=== PATIENT | female | born 1985 | race Caucasian/White ===

== ENCOUNTER → 2019-02-11 15:08 | Outpatient (CLI) | payer BC, SELFPAY ==
[2019-02-11 15:50] LABS: Hemoglobin A1C% w Est Avg Glu 4.8 % (4.0-6.0)
[2019-02-11 16:10] LABS: Cholesterol 108 mg/dL (140-199); HDL Cholesterol 40 mg/dL (40-60); LDL Cholesterol Calculated 57 mg/dL (<100); Triglycerides 57 mg/dL (35-150)
== END ==
PROVIDERS: Family Provider Family Medicine; PCP Family Medicine; Visit Provider Registered Nurse Women's Health Care, Ambulatory
DX: Z13.220 Encounter for screening for lipoid disorders (principal); Z13.1 Encounter for screening for diabetes mellitus
CPT/HCPCS: 36415; 80061; 83036

== ENCOUNTER → 2019-07-30 10:44 | Outpatient (CLI) | payer BC, SELFPAY ==
--- NOTE | 2019-07-30 | DI.US.S_ITS ---
PROCEDURE: US OB >= 14 WEEKS FETUS INDICATIONS: 20 WEEK ANATOMY SURVEY OUTSIDE/PRIOR DATING DATA: Last menstrual period (LMP): 03/19/19. LMP-based estimated date of delivery (ALBA): 12/24/19. First dating scan (date and location): 07/30/19. Estimated date of delivery (ALBA) from first dating scan: 12/20/19. TECHNIQUE: Real-time scanning was performed of the fetus, with image documentation and biometric measurements. COMPARISON: None. FINDINGS: General: A single living intrauterine gestation is present. Presentation: Vertex. Placenta: Placental position is anterior, without previa. Amniotic fluid index: 18.8 cm, normal range is 5-24 cm. heart rate: 157 beats per minute. Maternal cervical canal: 5.7 cm long. biometrics: Biparietal diameter: 4.6 cm corresponding to 19 weeks 6 days Head circumference: 16.5 cm corresponding to 19 weeks one day Abdominal circumference: 13.8 cm corresponding to 19 weeks 2 days Femur length: 2.9 cm and 19 weeks zero days Estimated gestational age from initial scan: not applicable. Composite gestational age from present scan: 19 weeks 4 days Estimated weight and percentile: 276 and g 54th percentile Measurement variability for biometric dating: +/- 7 days from 14 weeks to 15 weeks 6 days gestation, +/- 10 days from 16 weeks to 21 weeks 6 days gestation, +/- 2 weeks from 22 weeks to 27 weeks 6 days gestation, +/- 3 weeks for 28 weeks gestation or later. weight reference: 4500 g or EFW >90/95% is considered macrosomia or large for gestational age. EFW <10% is small for gestational age. EFW 5% or less is considered intra-uterine growth restriction. Anatomic survey: Neuro: Ventricles are non-dilated at less than 10 mm. Cisterna magna is normal at 3-11 mm. Cerebellum is normal in size and morphology. Nuchal skin fold: Normal at less than 6 mm between 14-21 weeks gestational age. Face: Nose and lips, facial profile are normal. Spine: No evidence for spina bifida. Heart: 4-chambered heart is present, with normal ventricular outflow tracts. Diaphragm: Diaphragm is intact. Stomach: Left-sided stomach is present. Kidneys: No hydronephrosis. Normal is less than 5 mm in 2nd trimester, less than 7 mm in 3rd trimester. Cord: 3-vessel cord has orthotopic insertion. Bladder: Normal in size. Extremities: All 4 extremities identified. IMPRESSION: 1. Single live intrauterine as above. 2. Anatomy is within normal limits. Dictated by: Nathalie Tilley M.D. on 07/30/2019 at 15:16 Approved by: Nathalie Tilley M.D. on 07/30/2019 at 15:18
== END ==
PROVIDERS: Family Provider Family Medicine; PCP Family Medicine; Referring Provider Nurse Practitioner Obstetrics & Gynecology; Visit Provider Nurse Practitioner Obstetrics & Gynecology
DX: Z36.89 Encounter for other specified antenatal screening (principal); Z3A.19 19 weeks gestation of pregnancy
CPT/HCPCS: 76811

== ENCOUNTER → 2019-09-24 09:02 | Outpatient (CLI) | payer BC, SELFPAY ==
[2019-09-24 10:28] LABS: GTT (PREG) 1 Hour PP 50gm Dose 101 mg/dL (76-139)
[2019-09-24 13:32] LABS: Hematocrit 35.9 % (36-46); Hemoglobin 12.6 g/dL (12.0-16.0); Mean Corpuscular HGB Conc 35.2 % (30-36); Mean Corpuscular Hemoglobin 32.3 PG (26-34); Mean Corpuscular Volume 91.8 fL (80-100); Platelet Count 138 X10^3/uL (150-400); Red Blood Cell Count 3.91 X10^6/uL (4.0-5.2); Red Cell Distribution Width 13.2 % (11.6-14.8); White Blood Cell Count 8.1 X10^3/uL (4.5-11.0)
== END ==
PROVIDERS: Family Provider Family Medicine; PCP Family Medicine; Referring Provider Nurse Practitioner Obstetrics & Gynecology; Visit Provider Nurse Practitioner Obstetrics & Gynecology
DX: Z34.90 Encounter for supervision of normal pregnancy, unspecified, unspecified trimester (principal); Z13.1 Encounter for screening for diabetes mellitus; Z3A.26 26 weeks gestation of pregnancy
CPT/HCPCS: 36415; 82950; 85027

== ENCOUNTER → 2019-11-26 12:19 | Outpatient (ROUT) | payer BC, SELFPAY | PROVIDERS: Family Provider Family Medicine; PCP Family Medicine; Visit Provider Nurse Practitioner Obstetrics & Gynecology | DX: Z34.90 Encounter for supervision of normal pregnancy, unspecified, unspecified trimester (principal); Z36.85 Encounter for antenatal screening for Streptococcus B; Z3A.36 36 weeks gestation of pregnancy | CPT/HCPCS: 87081 ==

== ENCOUNTER → 2019-12-13 14:49 | Outpatient (CLI) | payer BC, SELFPAY ==
[2019-12-14 16:34] LABS: COVID19 Sendout Not Detected (Not Detect)
== END ==
PROVIDERS: Family Provider Family Medicine; PCP Family Medicine; Visit Provider Physician Assistant
DX: Z11.59 Encounter for screening for other viral diseases (principal)
CPT/HCPCS: 87635

== ENCOUNTER 2019-12-16 10:29 | Inpatient (IN) | payer BC, SELFPAY ==
[2019-12-16 10:52] VITALS: BP 114/60
[2019-12-16 11:21] LABS: Add Manual Diff / Slide Review NO; Basophils Absolute Auto 100 /uL (0-100); Eosinophils Absolute Auto 100 /uL (0-450); Eosinophils Percent Auto 0.8 % (2-4); Hematocrit 36.1 % (36-46); Hemoglobin 12.6 g/dL (12.0-16.0); Lymphocytes Absolute Auto 1000 /uL (1100-4500); Lymphocytes Percent Auto 12.6 % (25-40); Mean Corpuscular HGB Conc 34.8 % (30-36); Mean Corpuscular Hemoglobin 31.5 PG (26-34); Mean Corpuscular Volume 90.3 fL (80-100); Monocytes Absolute Auto 400 /uL (0-900); Neutrophils Absolute Auto 6700 /uL (1500-7000); Neutrophils Percent Auto 80.6 % (50-75); Platelet Count 137 X10^3/uL (150-400); Red Cell Distribution Width 13.2 % (11.6-14.8); White Blood Cell Count 8.3 X10^3/uL (4.5-11.0)
[2019-12-16] MEDS: LACTATED RINGERS 1,000 ML 100 ML IV ×3 (12:00→16:39)
--- NOTE | 2019-12-16 12:27 | PM.PREOP ---
Pre-operative Note COVID-19 COVID-19 status: Negative Result date/Date tested (Pos, Neg/Pending): 12/13/19 Interval Note History & Physical reviewed/Exam performed by Physician: Yes Changes to H&P: No
--- NOTE | 2019-12-16 13:15 | SUR.OPER ---
Placenta and cord blood sent with OB RN Mack Chacon
[2019-12-16] MEDS: KETOROLAC 30 MG/ML VIAL IV ×2 (13:30→19:20)
[2019-12-16 13:56] VITALS: BP 101/53; PULSE 68; O2SAT 97
--- NOTE | 2019-12-16 13:57 | P.OP_ITS ---
Operative Date/Time/Diagnoses Date of procedure: 12/16/19 Time of procedure: 13:57 Pre-op diagnosis: Thirty-nine weeks gestation Previous section x2 Keloid scar Post-op diagnosis: same Procedure & Clinicians Procedure: Procedures Operation Date: 12/16/19 12:00 Actual Procedures Side Surgeon p Repeat Section Cindy Hamlin MD Indications: 39 weeks gestation Previous section x2 Keloid scar Surgeon: Cindy Hamlin Anesthesia Type: Spinal (With Duramorph) Operative Notes Findings: Live male Normal uterus tubes and ovaries Dense adhesions of the fascia 1 cm keloid scar of the Pfannenstiel incision Closure Type: primary Specimen(s): other (Placenta to path, cord bloods) Applied: catheter (To continuous drainage) Estimated blood loss (mL): 500 Blood products transfused: none Procedure in detail: The patient was taken to the operating room where she was placed in the seated position. Spinal anesthesia with Duramorph was administered. The patient was then placed in the dorsal supine position with a leftward tilt. She was prepped and draped in the usual sterile fashion. A timeout was performed. After spinal analgesia was found to be adequate, the previous Pfannenstiel incision was excised in an elliptical fashion. the incision was then carried down to the fascia. The fascia was nicked in the midline, and the incision extended bilaterally with the Parsons scissors. Dense fascial scar was encountered and this was taken down with a 10. Blade and the Parsons scissors. The superior aspect of the fascial incision was grasped with a Edison clamps, elevated, and the underlying rectus muscles dissected off sharply and bluntly. Attention was then turned to the inferior aspect of this incision which in a similar fashion was grasped with a Josh clamps, elevated, and the underlying rectus muscles dissected off sharply and bluntly. The rectus muscles were in the midline. The peritoneum was identified, grasped between 2 hemostats, and entered sharply with the Metzenbaum scissors. This incision was extended superiorly and inferiorly with good visualization of the bladder. The bladder blade was inserted. The vesicouterine peritoneum was identified, grasped with the pickup, and entered sharply with the Metzenbaum scissors. This incision was extended bilaterally, and the bladder flap was created digitally. The bladder blade was reinserted. The lower uterine segment was incised in a transverse fashion with the scalpel. Upon entering the amniotic sac there was moderate amount of clear amniotic fluid. The infant's head was delivered with vacuum assistance. The nose and mouth were suctioned with bulb suction. The remainder of the body delivered without difficulty. The baby was wrapped in a warm blanket for 1 minutes to allow the cord to stop pulsing. The cord was double clamped and cut. The was handed off to waiting RN and RT. The placenta was delivered manually. The uterus was cleared of all clots and debris. the cervix was opened with a ring forceps which was then handed off the sterile field. The uterine incision was repaired with #1 chromic in a running interlocking fashion, and a second layer the same suture was used for an imbricating layer. Hemostasis was achieved. The tubes and ovaries were examined and were found to be normal. The gutters were cleared of all clots and debris. The bladder flap was reapproximated using 2-0 Vicryl in a running fashion. The parietal peritoneum was closed using 2-0 Vicryl in a running fashion. the muscle was brought together with 2 0 Vicryl. The fascia was re approximated using 0 Vicryl in a running fashion. The subcutaneous layer was copiously irrigated with warm normal saline. 5 simple interrupted sutures of 3- 0 Vicryl were placed to reapproximate the subcutaneous layer. The skin was closed with 4-0 Biosyn in a subcuticular fashion. Steri-Strips were placed. An Aquacell dressing was placed. The uterus was expressed of a small amount of old blood. Sponge, lap, and instrument counts were correct x-2. The patient tolerated the procedure well, and was taken to PACU in stable condition. Complications: none Post-operative Condition: stable Disposition: PACU Plan for aftercare: To the center after recovery
[2019-12-16 14:01] VITALS: BP 107/66; PULSE 70; RESP 28; O2SAT 97
[2019-12-16 14:06] VITALS: BP 96/59; PULSE 69; RESP 9; O2SAT 97
[2019-12-16 14:11] VITALS: BP 95/65; PULSE 69; RESP 14; O2SAT 98
--- NOTE | 2019-12-16 14:15 | SUR.PHASEI ---
Report called called to Apoorva
[2019-12-16 14:21] VITALS: TEMP 35.8
--- NOTE | 2019-12-16 14:22 | SUR.PHASEI ---
patient transferred to the center by Maria Isabel. Condition stable.
[2019-12-16] MEDS: ONDANSETRON 4 MG/2 ML INJ IV (17:30)
[2019-12-17] MEDS: KETOROLAC 30 MG/ML VIAL IV ×2 (01:46→07:36)
[2019-12-17 06:10] LABS: Hematocrit 33.1 % (36-46); Hemoglobin 11.3 g/dL (12.0-16.0)
[2019-12-17] MEDS: DOCUSATE 250 MG CAPSULE PO (07:37)
[2019-12-17] MEDS: PRENATAL VIT,CALC/IRON/FOLIC 1 TABLET 1 TAB PO (07:37)
--- NOTE | 2019-12-17 12:58 | PM.OBDS.1 ---
Discharge Providers Provider Date of admission: 12/16/19 10:29 Discharge Date: 12/17/19 Primary care physician: Natty Wilkerson DO Consults: 12/16/19 16:27 Consult to Reference Assistant Routine Comment: Discharge provider: Cindy Hamlin MD Summary Hospital Course Date Patient Seen: 12/17/19 Time Patient Seen: 10:15 Procedures: Repeat low-transverse section Spinal anesthesia Hospital Course: Patient is a 34-year-old 3 para 3 who presented on December 17, 2019 for a scheduled repeat low-transverse section. She underwent this procedure as well as a revision of her keloid scar without complication. On postop day # 1 her Mott catheter was removed and she was able to void without difficulty. She is ambulating independently. Her pain is well controlled. She is tolerating a diet. Peripartum Data Infant Delivery Method: Section (Repeat) Laceration Description: None Episiotomy description: None Procedures: Repeat low-transverse section Spinal anesthesia complications: none [place] 1: Gender: Male Disposition of : home Status at Discharge Cognitive/behavioral status at discharge: oriented Functional status at discharge: independent ambulation Overall status at discharge: patient is progressing back to baseline Time Spent with Patient Time attestation: Total time spent providing and/or coordinating discharge services: Objective Labs Result Diagrams: 12/17/19 06:00 Labs: Laboratory Results - last 24 hr 12/17/19 06:00 Hgb 11.3 L Hct 33.1 L Exam Vital Signs (past 8 hours): Oxygen Delivery Method Room Air Narrative Exam Narrative: Generally: Patient is sitting in chair, nursing infant, no acute distress Lungs: Clear to auscultation bilaterally Cardiovascular: Regular rate and rhythm Fundus: Firm at U -1 Incision: There was old blood under the Aquacel dressing. The Aquacel dressing was removed. The Steri-Strips that had some old blood were removed. The incision was cleaned. Clean Steri-Strips and an Aquacel dressing were placed. Extremities: Negative Homans, no edema Discharge Plan Discharge Plan Patient Disposition: Home Discharge comment: Call with fever, chills, redness or drainage around incision or bleeding vaginally more than a pad in an hour Ibuprofen 600mg every 6 hours Stool softner Percocet or Tylenol every 6 hours Discharge orders & Medications Prescriptions: New oxycodone-acetaminophen [Percocet] 5-325 mg tablet 1 tab PO Q4-6H PRN (Reason: pain) Qty: 20 RF: 0 docusate sodium [Colace] 100 mg capsule 100 mg PO DAILY Qty: 20 RF: 0 Continued cetirizine 10 MG tablet 10 mg PO PRN PRN (Reason: allergies) Qty: 0 RF: 0 Follow up/Referrals: Cindy Hamlin MD [Physician] - 1 Week (1 week Aquacel removal ) Gricel Arboleda CNM [Advanced Deputy Coroner Investigator] - 6 Weeks Diet/Activity/Treatments Diet: Regular Activity: No heavy lifting Skin/Wound/Dressing Care Report to your healthcare provider any signs of infection, such as:: chills, fever, increased pain, unusual drainage and unusual redness Dressing: Do not remove Visit Report/Discharge Packet Instructions: DI for , DI for Prescription Opioid Use Discharge Data Primary Care Provider: Natty Wilkerson
[2019-12-17] MEDS: ACETAMINOPHEN 325 MG TABLET 650 MG PO (13:15)
[2019-12-17] MEDS: IBUPROFEN 600 MG TABLET PO (13:15)
[2019-12-17 14:23] VITALS: BP 108/66; PULSE 77; RESP 16; TEMP 36.7
== END 2019-12-17 17:10 | disposition home or self-care (01) | DRG 788 ==
PROVIDERS: Admitting Provider Obstetrics & Gynecology; Family Provider Family Medicine; PCP Family Medicine; Referring Provider Obstetrics & Gynecology; Visit Provider Obstetrics & Gynecology
PROC: 10D00Z1 Extraction of Products of Conception, Low, Open Approach (ICD-10-PCS; CPT 59514; principal; 2019-12-16 12:00)
DX: O34.211 Maternal care for low transverse scar from previous cesarean delivery (principal); Z3A.39 39 weeks gestation of pregnancy; Z37.0 Single live birth
CPT/HCPCS: 36415; 59050; 59514; 85014; 85018; 85025; 86850; 86900; 86901; J1885; J2274; J2405; J2590; J3010

== ENCOUNTER 2019-12-18 15:06 | Observation (INO) | payer BC, SELFPAY ==
--- NOTE | 2019-12-18 15:10 | PC.NURSE ---
Pt presents to L&D at the encouragement of Gricel Arboleda CNM to come in to be evaluated for a spinal headache post c/s from last . Pt c/o intense headache. Pt reports it's worse when she bends her neck. Headache not improved with Ibuprofen, Tylenol, or Oxycodone. Dr. Chisholm (the anesthesiologist acquisition associate) was notified that the pt was coming and is notified now that the pt is here. She is in an OR case and will come evaluate the pt once the surgery is over. Pt informed and agrees with poc.
--- NOTE | 2019-12-18 15:15 | PM.OBTRLD ---
Visit Information Visit Information Date of evaluation: 12/18/19 Primary OB Provider: Gricel Arboleda On-call OB Provider: Sharifa Jasso Comments/Additional reasons for admission: 34YO @ 2 days PP s/p repeat 12/16/19@ 1200. Has had a headache since yesterday morning despite round the clock ibuprofen and Tylenol. Headache extends from forehead to base of skull, described as throbbing. Headache is worse with sitting and standing, unnoticeable when lying down. Vital Signs Vital Signs: BP 116/67, HR 80bpm, T97.0F Temporal PFSH Medical History Seasonal allergies (Chronic) Surgical History Anesthesia (Resolved) S/P surgery on nasal septum (Resolved 2005) Status post delivery (Resolved 2014) Status post delivery (Resolved 2015) Family History Grandmother Hypertension Hyperlipidemia Pacemaker Mother Age: 60 Acquired hypothyroidism Grandmother Hypertension Grandfather No problems noted. Grandfather Prostate cancer Social History Smoking Status: Never smoker Review of Systems Review of Systems ROS: Yes All systems reviewed with the patient and are negative except as otherwise documented Exam Vital Signs (past 8 hours): see above Eyes General: appearance normal, both eyes and all related structures Pupils: PERRL Resp Effort & Inspection: normal respiratory effort Auscultation: clear to auscultation bilaterally Cardio Rate: regular rate Rhythm: regular rhythm Heart Sounds: S1 normal and S2 normal Other: Fundus firm @ u-1, lochia light. Aquacel in place, clean, dry and intact. Neuro General: patient alert, patient awake, patient oriented x3 and moves all extremities Cognition: normal cognition Speech: speech normal Gait: normal gait Diagnosis, Plan/Disposition Final Diagnosis (1) S/P section: Status: Acute (2) Spinal headache complicating labor and delivery, condition: Status: Acute Problem details: Counseled on spinal headache and possibility of epidural blood patch for treatment. Consulted / OC Anesthesia provider who will come evaluate the patient as soon as she leaves the OR.
--- NOTE | 2019-12-18 16:10 | PC.NURSE ---
Dr. Chisholm at bedside assessing pt and discussing options and blood patch procedure with pt including risks and benefits. pt agrees with blood patch procedure and would like to continue with that plan.
--- NOTE | 2019-12-18 16:33 | PC.NURSE ---
Addendum entered by Patsy Bond R.N. 12/18/19 17:11: Blood patch procedure performed by Dr. Chisholm from 1627 to 1633. 20cc blood drawn from pt's LAC by me with 21G butterfly needle and injected by Dr. Chisholm into pt's epidural space. pt tolerated procedure well. pt is to lie flat for one hour then can go home. Original Note: Blood patch procedure performed
--- NOTE | 2019-12-18 16:39 | P.PCN_ITS ---
Procedures Date/Time Date of procedure: 12/18/19 Time of procedure: 16:27 General Procedure description: Epidural Blood Patch Patient with symptoms consistent with post-dural puncture headache. Repeat c- section three days ago with a difficult spinal. Eventual success after three attempts with a 22G Quinke. Patient told that she had very tight spaces and thick ligaments. Presenting with 8-9/10 headache, postural, not improved with conservative management. She would like to proceed with epidural blood patch. PAR-Q performed and patient consented. Positioned with monitors sitting, prepped, draped and time-out performed. Epidural space found via a [id number] technique with saline/air bubble. SHERYL at 4.45 cm. 20mL of blood drawn by RN from [facility]. Transfered in sterile fasion to . 20mL of blood injected into epidural space without patient complaint of pressure. Headache rated at 1/10 at end of procedure. She will lay supine for one hour, monitored in Obs and is aware of signs/symptoms of adverse conditions for which to return to the ED. Jamila Chisholm MD, FAWN Anesthesiologist Complications: none
[2019-12-18 17:15] VITALS: BMI 23.2
[2019-12-18 17:28] VITALS: BP 109/62; PULSE 69; RESP 16; O2SAT 98
== END 2019-12-18 17:45 | disposition home or self-care (01) ==
PROVIDERS: Admitting Provider Nurse Practitioner Obstetrics & Gynecology; Family Provider Family Medicine; PCP Family Medicine; Referring Provider Nurse Practitioner Obstetrics & Gynecology; Visit Provider Nurse Practitioner Obstetrics & Gynecology
DX: O74.5 Spinal and epidural anesthesia-induced headache during labor and delivery (principal)
CPT/HCPCS: 62273; 36415; 59025; G0378; G0379

== ENCOUNTER → 2021-08-21 10:41 | Outpatient (CLI) | payer OTHER, SELFPAY ==
[2021-08-21 11:15] LABS: Specimen Label KIT
[2021-08-21 12:08] LABS: Add Manual Diff / Slide Review NO; Basophils Absolute Auto 0 /uL (0-100); Basophils Percent Auto 0.4 % (0-2); Eosinophils Absolute Auto 100 /uL (0-450); Eosinophils Percent Auto 0.7 % (2-4); Hematocrit 36.1 % (36-46); Hemoglobin 12.7 g/dL (12.0-16.0); Lymphocytes Absolute Auto 900 /uL (1100-4500); Lymphocytes Percent Auto 11.9 % (25-40); Mean Corpuscular HGB Conc 35.2 % (30-36); Mean Corpuscular Hemoglobin 31.1 PG (26-34); Mean Corpuscular Volume 88.3 fL (80-100); Monocytes Absolute Auto 300 /uL (0-900); Neutrophils Absolute Auto 6200 /uL (1500-7000); Platelet Count 150 X10^3/uL (150-400); Red Blood Cell Count 4.08 X10^6/uL (4.0-5.2); Red Cell Distribution Width 13.6 % (11.6-14.8); White Blood Cell Count 7.5 X10^3/uL (4.5-11.0)
[2021-08-21 12:20] LABS: Appearance Urine UA CLEAR; Bilirubin Urine UA NEGATIVE (NEGATIVE); Color Urine UA YELLOW; Glucose Urine UA NEGATIVE (Negative); Ketones Urine UA NEGATIVE (NEGATIVE); Leukocyte Esterase Urine UA NEGATIVE (NEGATIVE); Nitrite Urine UA NEGATIVE (Negative); Occult Blood Urine UA NEGATIVE (Negative); Protein Urine UA NEGATIVE (Negative); Specific Gravity Urine UA 1.015 (1.000-1.035); Urobilinogen Urine UA 0.2 E.U./dL (0.2)
[2021-08-21 13:01] LABS: Hepatitis B Surface Antigen NEGATIVE s/c (NEGATIVE); Rubella Antibody IgG 17.3 IU/mL (>15)
[2021-08-21 13:17] LABS: HIV 1 & 2 Ab/Ag 4th Gen Combo NEGATIVE (NEGATIVE); Hep C Virus Ab w/Reflex Quant NEGATIVE s/c (NEGATIVE)
[2021-08-21 15:17] LABS: Urine N gonorrhoeae NOT DETECTED
[2021-08-21 15:52] LABS: Urine Chlamydia NOT DETECTED
[2021-08-22 13:24] LABS: RPR Screen Non Reactive (Non Reactive); Varicella IgG Antibody 532 index (Immune >165)
== END ==
PROVIDERS: Family Provider Family Medicine; Referring Provider Obstetrics & Gynecology; Visit Provider Obstetrics & Gynecology
DX: Z34.81 Encounter for supervision of other normal pregnancy, first trimester (principal)
CPT/HCPCS: 36415; 80055; 81003; 86787; 86803; 86850; 86900; 86901; 87086; 87389; 87491; 87591

== ENCOUNTER → 2021-09-28 10:58 | Outpatient (CLI) | payer OTHER, SELFPAY ==
[2021-10-01 12:55] LABS: AFP Value 36.6 ng/mL (.); Insulin Dep Diabetes No (.); OSBR Risk 1IN 10000 (.); Results Report (.); Test Results *Screen Negative* (.)
== END ==
PROVIDERS: Family Provider Family Medicine; Referring Provider Obstetrics & Gynecology; Visit Provider Obstetrics & Gynecology
DX: Z34.82 Encounter for supervision of other normal pregnancy, second trimester (principal); Z3A.16 16 weeks gestation of pregnancy
CPT/HCPCS: 36415; 82105

== ENCOUNTER → 2021-10-19 07:57 | Outpatient (CLI) | payer OTHER, SELFPAY ==
--- NOTE | 2021-10-19 07:58 | DI.US.S_ITS ---
PROCEDURE: US OB >= 14 WEEKS FETUS INDICATIONS: anatomy scan OUTSIDE/PRIOR DATING DATA: Last menstrual period (LMP): 06/08/2021 LMP-based estimated date of delivery (ALBA): 03/15/2022 First dating scan (date and location): 08/21/2021 Estimated date of delivery (ALBA) from first dating scan: 03/19/2022 TECHNIQUE: Real-time scanning was performed of the fetus, with image documentation and biometric measurements. COMPARISON: [facility], OB >= 14 WEEKS FETUS, 07/30/2019, 11:23. FINDINGS: General: A single living intrauterine gestation is present. Presentation: Breech Placenta: Anterior, without previa Amniotic fluid index: 12.6 heart rate: 143 beats per minute Maternal cervical canal: 4.9 cm biometrics: Biparietal diameter: 4.2 cm Head circumference: 15.6 cm Abdominal circumference: 13.4 cm Femur length: 2.8 cm Clinically estimated gestational age: 18 weeks and 3 days Composite gestational age from present scan: 18 weeks and 4 days Estimated weight and percentile: 250 g, and the 59th percentile Anatomic survey: Neuro: Ventricles are non-dilated at less than 10 mm. Cisterna magna is normal at 3-11 mm. Cerebellum is normal in size and morphology. Incidentally noted 6 x 5 x 4 mm choroid plexus cyst. Nuchal skin fold: Normal at less than 6 mm between 14-21 weeks gestational age. Face: Nose and lips, facial profile are normal. Spine: C, T, and L-spine are within normal limits. The skin over the sacrum is not well seen. Heart: Four-chamber view and right ventricular outflow view are not well seen. LVOT view was normal. Diaphragm: Diaphragm is intact. Stomach: Left-sided stomach is present. Kidneys: No hydronephrosis. Normal is less than 5 mm in 2nd trimester, less than 7 mm in 3rd trimester. Cord: 3-vessel cord has orthotopic insertion. Bladder: Normal in size. Extremities: All 4 extremities identified. IMPRESSION: Composite gestational age of 18 weeks and 4 days by biometry today, concordant with clinically estimated gestational age at 18 weeks and 3 days. Incidentally noted choroid plexus cyst. Correlate with maternal risk factors and laboratory testing to determine actual risk. Right ventricular outflow view, four-chamber view, and the skin overlying the sacrum are not well seen. Recommend repeat anatomic assessment at 20 weeks or later. We strive to produce accurate, complete, and clear reports of imaging services. To assist us in improving patient care, this report was composed using standard report templates and voice recognition software. Therefore, it may contain abnormal punctuation, insertions and/or omissions. Occasional wrong-word or sound-alike substitutions may occur. Though we review the report and make efforts to correct it, we do recommend that the report be read carefully in proper context to recognize any text inaccuracies. Dictated by: Dm Sterling M.D. on 10/19/2021 at 9:58 Approved by: Dm Sterling M.D. on 10/19/2021 at 10:06
== END ==
PROVIDERS: Family Provider Family Medicine; Referring Provider Obstetrics & Gynecology; Visit Provider Obstetrics & Gynecology
DX: Z34.82 Encounter for supervision of other normal pregnancy, second trimester (principal); Z3A.18 18 weeks gestation of pregnancy
CPT/HCPCS: 76811

== ENCOUNTER → 2021-11-15 07:54 | Outpatient (CLI) | payer OTHER, SELFPAY ==
--- NOTE | 2021-11-15 07:55 | DI.US.S_ITS ---
PROCEDURE: US OB FOLLOW UP INDICATIONS: Choroid plexus cyst OUTSIDE/PRIOR DATING DATA: Last menstrual period (LMP): 06/08/2021 LMP-based estimated date of delivery (ALBA): 03/15/2022. First dating scan (date and location): 08/21/2021. Estimated date of delivery (ALBA) from first dating scan: 03/19/2022. The calculations are made using the ultrasound ALBA of 03/19/2022. TECHNIQUE: Real-time scanning was performed of the fetus, with image documentation and biometric measurements. COMPARISON: [facility], , OB >= 14 WEEKS FETUS, 10/19/2021, 9:04. FINDINGS: General: A single living intrauterine gestation is present. Presentation: Transverse. Placenta: Placental position is anterior , without previa. Amniotic fluid index: 15.8 cm, normal range is 5-24 cm. Single deepest vertical pocket is 6.8 cm. heart rate: 145 beats per minute. Maternal cervical canal: 4.1 cm long. Normal lower limit is 2.5 cm. Clinically estimated gestational age: 22 weeks 2 days Normal appearance of the four-chamber heart and cardiac outflow tracts as well as the spine. Marginal placental cord insertion site 2 cm from the placental edge. Choroid plexus cyst may be present on one image, but not seen on other images. IMPRESSION: 1. Single living IUP redemonstrated with age estimated at 22 weeks 2 days by prior ultrasound. 2. Normal appearance of the four-chamber heart, cardiac outflow tracts and spine. 3. Marginal placental cord insertion. 4. It is unclear if the previously demonstrated choroid plexus cyst persists. Correlation with maternal age, ethnicity, and aneuploidy risk assessment results such as serum screening or cell free DNA testing may be helpful to guide further management. An isolated choroid plexus cyst in a patient with documented low risk CFF DNA testing is likely a normal variant and not clinically significant. We strive to produce accurate, complete, and clear reports of imaging services. To assist us in improving patient care, this report was composed using standard report templates and voice recognition software. Therefore, it may contain abnormal punctuation, insertions and/or omissions. Occasional wrong-word or sound-alike substitutions may occur. Though we review the report and make efforts to correct it, we do recommend that the report be read carefully in proper context to recognize any text inaccuracies. Dictated by: Russ DOWD Interpreted: Jay Garcia MD on 11/15/2021 at 12:08 Transcribed by: CAYDEN on 11/15/2021 at 12:11 Approved by: Jay Garcia M.D. on 11/15/2021 at 21:17
== END ==
PROVIDERS: Family Provider Family Medicine; Referring Provider Obstetrics & Gynecology; Visit Provider Obstetrics & Gynecology
DX: Z36.2 Encounter for other antenatal screening follow-up (principal); Z3A.22 22 weeks gestation of pregnancy
CPT/HCPCS: 76816

== ENCOUNTER → 2021-12-19 06:58 | Outpatient (CLI) | payer OTHER, SELFPAY ==
[2021-12-19 09:44] LABS: Hematocrit 33.4 % (36-46); Hemoglobin 11.7 g/dL (12.0-16.0)
[2021-12-19 10:19] LABS: GTT (PREG) 1 Hour PP 50gm Dose 75 mg/dL (76-139)
== END ==
PROVIDERS: Family Provider Family Medicine; Referring Provider Obstetrics & Gynecology; Visit Provider Obstetrics & Gynecology
DX: Z34.82 Encounter for supervision of other normal pregnancy, second trimester (principal); Z3A.26 26 weeks gestation of pregnancy
CPT/HCPCS: 36415; 82950; 85014; 85018

== ENCOUNTER → 2022-02-21 14:55 | Outpatient (CLI) | payer OTHER, SELFPAY ==
[2022-02-22 15:22] LABS: Strep Grp B PCR POS for Grp B Strep
== END ==
PROVIDERS: Family Provider Family Medicine; Visit Provider Physician Assistant Medical
DX: Z34.83 Encounter for supervision of other normal pregnancy, third trimester (principal); Z3A.36 36 weeks gestation of pregnancy
CPT/HCPCS: 87653

== ENCOUNTER 2022-03-11 06:01 | Inpatient (IN) | payer OTHER, SELFPAY ==
[2022-03-11 06:42] LABS: Add Manual Diff / Slide Review NO; Basophils Absolute Auto 0 /uL (0-100); Basophils Percent Auto 0.2 % (0-2); Eosinophils Absolute Auto 100 /uL (0-450); Eosinophils Percent Auto 1.1 % (2-4); Hematocrit 36.2 % (36-46); Hemoglobin 12.3 g/dL (12.0-16.0); Lymphocytes Absolute Auto 1200 /uL (1100-4500); Lymphocytes Percent Auto 13.3 % (25-40); Mean Corpuscular HGB Conc 33.8 % (30-36); Mean Corpuscular Hemoglobin 30.2 PG (26-34); Mean Corpuscular Volume 89.1 fL (80-100); Monocytes Absolute Auto 600 /uL (0-900); Monocytes Percent Auto 6.3 % (3-14); Neutrophils Absolute Auto 7100 /uL (1500-7000); Neutrophils Percent Auto 79.1 % (50-75); Platelet Count 137 X10^3/uL (150-400); Red Blood Cell Count 4.06 X10^6/uL (4.0-5.2); Red Cell Distribution Width 13.9 % (11.6-14.8)
[2022-03-11 06:51] VITALS: BP 106/58
--- NOTE | 2022-03-11 07:36 | PM.OBHP.IH.1 ---
OB HPI Date/Time Date of admission: 03/11/22 Date Patient Seen: 03/11/22 Time Patient Seen: 07:36 History of Present Condition Chief complaint: REPEAT & BEIL SALPINGECTOMY ALBA Calculator Estimated Delivery Date Method Current WG Current Estimate 03/15/22 LMP (Certain) 39w 3d Other Estimates 03/19/22 Ultrasound #1 38w 6d Estimated Gestational Age (weeks): 39 : 4 Para: 3 care: good care, initiated at week # (10), number of visits (11) and pounds weight gain (44) Dating criteria OB: LMP confirmed by 1st trimester US Ultrasounds: normal 1st trimester US and normal mid trimester US Obstetrical complications: none Medical complications OB: none Indications Operative indications ( section): previous uterine surgery (3 C/S) Preadmission Labs Last OB Lab Results: Blood Type O Positive 08/21/21 11:00 Antibody Screen Negative 08/21/21 11:00 Hematocrit 36.2 % (36-46) 03/11/22 06:21 Hemoglobin 12.3 g/dL (12.0-16.0) 03/11/22 06:21 Hepatitis B Surface Antigen Negative s/c (NEGATIVE) 08/21/21 11:00 Hepatitis C Antibody Negative s/c (NEGATIVE) 08/21/21 11:00 Rubella Antibody 17.3 IU/mL (>15) 08/21/21 11:00 Varicella-Zoster IgG Antibody 532 index (Immune >165) 08/21/21 11:00 Glucose 1 Hour 75 mg/dL (76-139) L 12/19/21 07:08 Group B Streptococcus (PCR) Pos for grp b strep H 02/21/22 14:55 -: Chlamydia screen: negative, Gonorrhea screen: negative and Urine: negative Genetic Screens: Cell-free DNA: Normal and Alpha-fetoprotein: Normal External Labs -: Urine: negative Prior (ies) Past Pregnancies Del. Date GA/Weeks Labor Lgth Wt Sex Route Outcome Anesthesia Place Delv Breastfeed Preg Comp Name 07/05/14 41 24 9 lb 6 oz Male live - full term IH 18 months none Ferny 03/01/16 39 7 lb Male live - full term IH 8 months none Jameson 12/16/19 39 9 lb 1 oz Male live - full term IH 8 months none Aurelio Evaluation Evaluation Baseline heart rate: 135 Variability: Moderate (11-25) monitor accelerations: Present Monitor Decelerations: Absent Status: Category l PFSH Medical History Diastasis recti Seasonal allergies Surgical History Anesthesia S/P surgery on nasal septum (2005) Status post delivery (2014) Status post delivery (2015) Status post delivery Family History Grandmother Hypertension Hyperlipidemia Pacemaker Acquired hypothyroidism Mother Age: 62 Acquired hypothyroidism Grandmother Hypertension Grandfather Hyperlipidemia Grandfather Prostate cancer Social History marital status: number of children: 3 household members: spouse and children lives independently: Yes housing: house pets and animals: Yes (1 outdoor cat, aware of toxo) education level: college occupational status: previously employed current occupational exposures/hazards: No Previous occupational history: 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 special cristobal needs: No travel history: recent ([place] in March) seatbelt use: always helmet use: Yes water heater temp set < 120 deg: Yes working smoke detector in home: Yes fire extinguisher in home: Yes carbon monox detector in home: Yes firearms in home: Yes firearms unloaded and locked: Yes do you feel safe at home: Yes Smoking Status: Never smoker second hand exposure: No alcohol intake: never substance use type: does not use during the past year weight has: remained stable well-balanced diet: daily or most days daily servings fruits/ve or more times/day caffeine: No Type(s) of exercise: regular exercise, other (crossfit) and running frequency: 5-6 times per week additional social history: Pt is a vegan. Meds Home Medications and Allergies Home Medications Medication Instructions Recorded Confirmed Type cetirizine 10 mg tablet 10 mg PO PRN PRN allergies ##0 12/26/11 03/10/22 History prenat.vits,kwame,bnu-rell-jiuhc 1 tab PO DAILY 08/02/21 03/10/22 History vitamin B complex (B 1 tab PO DAILY 08/02/21 03/10/22 History Complex-Vitamin B12 tablet) Allergies Allergy/AdvReac Type Severity Reaction Status Date / Time No Known Drug Allergies Allergy Unknown Verified 03/11/22 07:39 [NO KNOWN DRUG ALLERGIES] OB Exam Narrative Exam Narrative: Generally: Patient is sitting up in bed, no acute distress Lungs: Clear to auscultation bilaterally Cardiovascular: Regular rate and rhythm Fundal height: 39 cm Estimated weight: 7-1/2 lb Extremities: No edema Objective Labs Result Diagrams: 03/11/22 06:21 Labs: Laboratory Results - last 24 hr 03/11/22 06:21 WBC 9.0 RBC 4.06 Hgb 12.3 Hct 36.2 MCV 89.1 MCH 30.2 MCHC 33.8 RDW 13.9 Plt Count 137 L Neut % (Auto) 79.1 H Lymph % (Auto) 13.3 L [place] % (Auto) 6.3 Eos % (Auto) 1.1 L Baso % (Auto) 0.2 Neut # (Auto) 7100 H Lymph # (Auto) 1200 [place] # (Auto) 600 Eos # (Auto) 100 Baso # (Auto) 0 Assessment and Plan Assessment and Plan Assessment and Plan narrative: Assessment: 37-year-old 4 para 3 with a history of 3 prior sections 39 weeks gestation Plan: Repeat low-transverse section The risks, benefits, and alternatives to the procedure were explained to the patient. The risks including bleeding, infection, injury to the bowel, bladder, or ureters. She understands these risks and agrees to proceed. A full par Q was held and consent form was signed. Time Spent with Patient Total time spent with greater than 50% in coordination of care (as documented) at patient's floor/unit and/or counseling patient:: 15-24 minutes
[2022-03-11 07:40] LABS: COVID19 -Nasal RAPID Negative (Negative)
--- NOTE | 2022-03-11 07:52 | PM.PREOP ---
Pre-operative Note COVID-19 COVID-19 status: Negative Result date/Date tested (Pos, Neg/Pending): 03/11/22 Criteria for continued procedure: Non-surgical alternatives not available or appropriate per current SOC Interval Note History & Physical reviewed/Exam performed by Physician: Yes Changes to H&P: No H&P completed within 30 days and has changed as indicated here:: 03/11/22
[2022-03-11] MEDS: CEFAZOLIN 2 GM/100 ML PREMIX 100 ML IV (08:01)
[2022-03-11] MEDS: LACTATED RINGERS 1,000 ML 100 ML IV (08:05)
--- NOTE | 2022-03-11 08:15 | SUR.OPER ---
Supine on Padded OR bed, head on pillow, safety belt at thigh, arms secured on padded arm boards at <90 degrees abduction. Bump under right buttock. Legs uncrossed with pillow under knees, gel pad to heels, tape over blanket to lower legs.
--- NOTE | 2022-03-11 08:28 | SUR.OPER ---
FHT's 155 per OB Rn. Live male born @0816. Cord blood x 2 and placenta to OB with OB RN.
--- NOTE | 2022-03-11 08:58 | P.OP_ITS ---
Operative Date/Time/Diagnoses Date of procedure: 03/11/22 Time of procedure: 08:58 Pre-op diagnosis: Thirty-nine weeks gestation Previous section x3 Post-op diagnosis: same Procedure & Clinicians Procedure: Repeat low-transverse section Same procedure as scheduled: Yes Indications: 39 weeks gestation Previous section x3 Surgeon: Cindy Hamlin Click Yes if Unassisted: No Assistant Warehouse Manager: Nitza Early Case Reason for Assistant Warehouse Manager: The medical assistant secretary was necessary to retract upon entry into the abdomen and uterus. She assisted with fundal pressure on delivery of the infant. She is cyst did with retraction and clipping of suture on closure of the uterus and abdomen. She closed the contralateral fascia. Anesthesia Type: Spinal Operative Notes Findings: Live male infant in the CLAUDIA presentation. Normal uterus, tubes, and ovaries Closure Type: primary Specimen(s): cord blood and placenta Intraoperative meds administered: Duramorph, Ketorolac and Pitocin Applied: Catheter (To continuous drainage) Estimated Blood Loss (mL): 300 Blood products transfused: none Procedure in detail: The patient was taken to the operating room where she was placed in the seated position. Spinal anesthesia with Duramorph was administered. The patient was then placed in the dorsal supine position with a leftward tilt. She was prepped and draped in the usual sterile fashion. A timeout was performed. After spinal analgesia was found to be adequate, a Pfannenstiel skin incision was made and carried through to the underlying layer fascia. The fascia was nicked in the midline, and the incision extended bilaterally with the Parsons scissors. The superior aspect of the fascial incision was grasped with a Dinwiddie clamps, elev ated, and the underlying rectus muscles dissected off sharply and bluntly. Attention was then turned to the inferior aspect of this incision which in a similar fashion was grasped with a Dinwiddie clamps, elevated, and the underlying rectus muscles dissected off sharply and bluntly. The rectus muscles were in the midline. The peritoneum was identified, grasped between 2 hemostats, and entered sharply with the Metzenbaum scissors. This incision was extended superiorly and inferiorly with good visualization of the bladder. The bladder blade was inserted. The vesicouterine peritoneum was identified, grasped with the pickup, and entered sharply with the Metzenbaum scissors. This incision was extended bilaterally, and the bladder flap was created digitally. The bladder blade was reinserted. The lower uterine segment was incised in a transverse fashion with the scalpel. Upon entering the amniotic sac there was moderate amount of clear amniotic fluid. The infant's head was delivered without difficulty. The nose and mouth were suctioned with bulb suction. The remainder of the body delivered without difficulty. The was wrapped in a blanket. The cord was double clamped and cut after 1 minute. The was handed off to waiting RN and RT. The placenta was expressed. The uterus was cleared of all clots and debris. The cervix was opened with a ring forceps which was then handed off the table. The uterine incision was repaired with #1 chromic in a running interlocking fashion, and a second layer the same suture was used for an imbricating layer. Hemostasis was achieved. The tubes and ovaries were examined and were found to be normal. The gutters were cleared of all clots and debris. The bladder flap was reapproximated using 2-0 Vicryl in a running fashion. The parietal peritoneum was closed using 2-0 Vicryl in a running fashion. The fascia was reapproximated using 0 Vicryl in a running fashion. The subcutaneous layer was copiously irrigated with warm normal saline. 5 simple interrupted sutures of 3-0 Vicryl were placed to reapproximate the subcutaneous layer. The skin was closed with 4-0 Monocryl in a subcuticular fashion. Steri-Strips were placed. An Aquacel dressing was placed. The uterus was expressed of a small amount of old blood. Sponge, lap, and instrument counts were correct x-2. The patient tolerated the procedure well, and was taken to PACU in stable condition. Complications: none Baby 1: Infant Gender: Male Presentation: vertex Position: Left Occiput Anterior Placental Delivery Description: Expressed Cord Vessel Description: 3 Vessels and Clamped/Cut (After 1 minutes) score (1 min): 8 score (5 min): 9 weight: 8 lb 9 oz Post-operative Condition: stable Disposition: PACU Aftercare: routine postop
[2022-03-11 09:04] VITALS: BP 89/44; PULSE 92; RESP 16; TEMP 36.2; O2SAT 100
[2022-03-11 09:10] VITALS: BP 92/86; PULSE 82; RESP 16; O2SAT 98
[2022-03-11 09:15] VITALS: BP 98/66; PULSE 82; RESP 16; O2SAT 98
[2022-03-11 09:22] VITALS: BP 88/66; PULSE 82; RESP 16; TEMP 36.8; O2SAT 98
[2022-03-11] MEDS: KETOROLAC 30 MG/ML VIAL IV ×2 (14:43→20:43)
[2022-03-11] MEDS: ONDANSETRON 4 MG/2 ML INJ IV (14:43)
[2022-03-12] MEDS: KETOROLAC 30 MG/ML VIAL IV (02:52)
[2022-03-12 06:03] LABS: Hematocrit 31.4 % (36-46); Hemoglobin 10.7 g/dL (12.0-16.0)
--- NOTE | 2022-03-12 15:39 | PM.OBDS.1 ---
Discharge Providers Provider Date of admission: 03/11/22 06:01 Discharge Date: 03/12/22 Primary care physician: Natty Wilkerson DO Consults: 03/11/22 09:35 Consult to Project Manager [employer] Routine Comment: Discharge provider: Cindy Hamlin MD Summary Hospital Course Date Patient Seen: 03/12/22 Time Patient Seen: 09:30 Diagnoses: Thirty-nine weeks gestation Previous section x3 Hospital Course: Patient is a 37-year-old 4 para 4 who presented on March 11, 2022 for a scheduled repeat section. She underwent this procedure under spinal anesthesia without occasion. On postop day #1 she was tolerating a diet, she was ambulating independently, she was voiding without the catheter, no nausea or vomiting, and pain was well controlled. She requested discharge. Peripartum Data Delivery Method: Section Laceration Description: None Episiotomy description: None Procedures: Spinal anesthesia Repeat low-transverse section complications: none 1: Gender: Male Disposition of : home Status at Discharge Cognitive/behavioral status at discharge: oriented Functional status at discharge: independent ambulation Overall status at discharge: patient is progressing back to baseline Time Spent with Patient Time attestation: Total time spent providing and/or coordinating discharge services: Time spent: Less than 30 minutes Objective Labs Result Diagrams: 03/12/22 05:45 Labs: Laboratory Results - last 24 hr 03/12/22 05:45 Hgb 10.7 L Hct 31.4 L Exam Vital Signs (past 8 hours): Oxygen Delivery Method Room Air Narrative Exam Narrative: Generally: Patient is sitting up in chair, holding , no acute distress Lungs: Clear to auscultation bilaterally Cardiovascular: Regular rate and rhythm Fundus: Firm at U -1 Incision: Clean dry and intact with Aquacel dressing Extremities: No edema, negative Homans Discharge Plan Discharge Plan Patient Disposition: Home Provider Discharge Comment: Call with fever, chills, or drainage around the incision, or bleeding vaginally more than a pad in an hour Ibuprofen 600 mg every 6 hours as needed Tylenol 650 mg every 6 hours as needed Drink plenty of fluids Discharge orders & Medications Prescriptions: Continued cetirizine 10 MG tablet 10 mg PO PRN PRN (Reason: allergies) Qty: 0 prenat.vits,kwmae,kuz-tpfb-czcak Tablet 1 tab PO DAILY vitamin B complex [B Complex-Vitamin B12] Tablet 1 tab PO DAILY Follow up/Referrals: Cindy Hamlin MD [Physician] - 1 Week (Aquacel dressing removal on March 22, 2022 3:45 check in 4:00 appointment) Diet/Activity/Treatments Diet: Regular Activity: No heavy lifting Nothing in the vagina for 6 weeks Skin/Wound/Dressing Care Report to your healthcare provider any signs of infection, such as:: chills, fever, increased pain, unusual drainage and unusual redness Dressing: Do not remove Visit Report/Discharge Packet Instructions: DI for Discharge Data Primary Care Provider: Natty Wilkerson
== END 2022-03-12 13:25 | disposition home or self-care (01) | DRG 788 ==
PROVIDERS: Admitting Provider Obstetrics & Gynecology; Family Provider Family Medicine; PCP Family Medicine; Referring Provider Obstetrics & Gynecology; Visit Provider Obstetrics & Gynecology
PROC: 10D00Z1 Extraction of Products of Conception, Low, Open Approach (ICD-10-PCS; CPT 59514; principal; 2022-03-11 07:45)
DX: O34.211 Maternal care for low transverse scar from previous cesarean delivery (principal); Z3A.39 39 weeks gestation of pregnancy; Z37.0 Single live birth; Z20.822 Contact with and (suspected) exposure to COVID-19; O99.824 Streptococcus B carrier state complicating childbirth
CPT/HCPCS: 36415; 59050; 59510; 59514; 85014; 85018; 85025; 86850; 86900; 86901; 87635; C9803; J0690; J1885; J2274; J2405; J2590; J3010

== ENCOUNTER → 2023-05-23 15:13 | Outpatient (CLI) | payer OTHER, SELFPAY ==
[2023-05-23 16:00] LABS: Influenza A - CEPHEID Flu A POSITIVE (NEGATIVE); Influenza B - CEPHEID Flu B NEGATIVE (NEGATIVE); Respiratory Syncytial Virus Negative (Negative)
[2023-05-23 16:06] LABS: COVID-19 CEPHEID 4-PLEX PCR Negative (Negative)
== END ==
PROVIDERS: Family Provider Family Medicine; PCP Family Medicine; Visit Provider Nurse Practitioner Family
DX: R05.9 Cough, unspecified (principal)
CPT/HCPCS: 0241U

== ENCOUNTER 2023-06-30 03:46 | Emergency (ER) | payer OTHER, SELFPAY ==
[2023-06-30 03:56] VITALS: BP 112/56; PULSE 55; RESP 16; TEMP 36.6; O2SAT 100; BMI 21.7
--- NOTE | 2023-06-30 04:00 | ED_ITS ---
HPI - Female Genitourinary General Chief complaint: Urogenital-Female Stated complaint: UTI Time Seen by Provider: 06/30/23 03:49 Source: patient Mode of arrival: Ambulatory History of Present Illness HPI Narrative: 38-year-old female with no significant past medical history presents for 1 day of burning with urination and urinary frequency. Reports concerned that she may have urinary tract infection. Took a dose of azo approximately 1 hour prior to arrival. Denies fevers, chills, flank pain, other complaints. Related Data Home Medications Medication Instructions Recorded Confirmed cetirizine 10 mg tablet 10 mg PO PRN PRN allergies ##0 12/26/11 05/23/23 vitamin B complex (B 1 tab PO DAILY 08/02/21 05/23/23 Complex-Vitamin B12 tablet) multivitamin PO DAILY 05/23/23 Previous Rx's Medication Instructions Recorded amoxicillin 500 mg capsule 500 mg PO BID #20 caps 05/23/23 nitrofurantoin macrocrystal 100 mg 100 mg PO BID #10 caps 06/30/23 capsule Allergies Allergy/AdvReac Type Severity Reaction Status Date / Time No Known Drug Allergies Allergy Unknown Verified 05/23/23 14:59 [NO KNOWN DRUG ALLERGIES] Review of Systems Review of Systems Narrative: Otherwise negative Patient History Medical History Diastasis recti Seasonal allergies Surgical History Status post delivery Anesthesia S/P surgery on nasal septum (2005) Status post delivery (2015) Status post delivery (2014) Family History Grandmother Hypertension Hyperlipidemia Pacemaker Acquired hypothyroidism Mother Age: 64 Acquired hypothyroidism Grandmother Hypertension Grandfather Hyperlipidemia Grandfather Prostate cancer Substance Use Type: does not use Exam Initial Vital Signs Initial Vital Signs: Vital Signs Temperature 97.8 F 06/30/23 03:56 Pulse Rate 55 L 06/30/23 03:56 Respiratory Rate 16 06/30/23 03:56 Blood Pressure 112/56 L 06/30/23 03:56 Pulse Oximetry 100 06/30/23 03:56 Oxygen Delivery Method Room Air 06/30/23 03:56 Const: Awake, alert, no acute distress, nontoxic appearing GI: Soft, nontender, nondistended, no rebound, no guarding MSK: No CVA tenderness bilaterally, full range of motion Skin: Warm, Dry, intact, no rashes Neuro: AO x3, CN II-XII grossly intact, moves all extremities Course Orders Ordered: ED Orders 06/30/23 04:12 UA Complete [Urinalysis and Microscopic] Stat 06/30/23 04:30 Test Urine Stat Vital Signs Vital signs: Vital Signs - 8 hr 06/30/23 03:56 Temperature 97.8 F Pulse Rate 55 L Respiratory Rate 16 Blood Pressure 112/56 L Pulse Oximetry 100 Oxygen Delivery Method Room Air MDM - Female Genitourinary Differential Diagnosis Differential diagnosis: Likely urinary tract infection, bacterial vaginosis and trichomoniasis Lab Data Labs: Lab Results 06/30/23 Range/Units 04:12 Urine Color [place] Urine Appearance Clear Urine pH TNP Ur Specific [place] TNP Urine Protein TNP Urine Glucose (UA) TNP Urine Ketones TNP Urine Occult Blood TNP Urine Nitrate TNP Urine Bilirubin TNP Urine Urobilinogen TNP Ur Leukocyte Esterase TNP Urine RBC 0-1/hpf (0-5/HPF) Urine WBC 0-1/hpf (0-5/HPF) Ur Squamous Epith Cells 0-1 /hpf (0-5/HPF) Urine Bacteria Occasional (0-1) (None) Ur Culture Indicated? Cult not indicated Vol Urine Centrifuged 10ml (spun) MDM Narrative Medical decision making narrative: Well-appearing patient with dysuria consistent with urinary tract infection. No signs or symptoms of pyelonephritis, physical exam is otherwise benign. Unfortunately since patient has taken azo her urine was unable to be fully analyzed and we do not have a complete specimen. She adamantly denies . Patient given dose of Macrobid in the emergency department and discharged on 5 days of antibiotics. UTI precautions discussed with patient at bedside. PCP follow up advised Discharge Plan Departure Patient Disposition: Home Clinical Impression: Dysuria Instructions: DI for Urinary Tract Infection (UTI) Activity Restrictions/Additional Instructions: We were unable to fully analyzed your urine due to the presence of azo, however since you are experiencing symptoms antibiotics are sent to the pharmacy. Make sure to drink plenty of fluids and follow up with your primary care physician. Prescriptions: New nitrofurantoin macrocrystal 100 mg capsule 100 mg PO BID Qty: 10 0RF Rx Instructions: must administer with a meal/food No Action multivitamin PO DAILY amoxicillin 500 mg capsule 500 mg PO BID Qty: 20 0RF cetirizine 10 MG tablet 10 mg PO PRN PRN (Reason: allergies) Qty: 0 vitamin B complex [B Complex-Vitamin B12] Tablet 1 tab PO DAILY Referrals: Natty Wilkerson DO [Primary Care Provider] - Stand Alone Forms: Patient Portal/API
[2023-06-30 04:16] LABS: Appearance Urine UA CLEAR
[2023-06-30 04:25] LABS: Color Urine UA ORANGE
[2023-06-30 04:26] LABS: Bacteria Urine Occasional (0-1); Culture Indicated Urine Cult Not Indicated; RBC Urine 0-1/HPF (0-5/HPF); Squamous Epithelial Cell Urine 0-1 /HPF (0-5/HPF); Urine Volume 10mL (spun); WBC Urine 0-1/HPF (0-5/HPF)
[2023-06-30 04:43] LABS: Pregnancy Test Urine Negative (Negative)
[2023-06-30] MEDS: NITROFURANTOIN ER 100 MG CAPSULE PO (04:43)
== END 2023-06-30 04:48 | disposition home or self-care (01) ==
PROVIDERS: Emergency Provider Emergency Medicine; Family Provider Family Medicine; PCP Family Medicine
DX: R35.0 Frequency of micturition (principal); R30.0 Dysuria
CPT/HCPCS: 81001; 81025; 99282; 99283

== ENCOUNTER → 2023-07-09 06:58 | Outpatient (CLI) | payer OTHER, SELFPAY ==
[2023-07-09 07:39] LABS: Appearance Urine UA CLEAR; Bilirubin Urine UA NEGATIVE (NEGATIVE); Color Urine UA ORANGE; Glucose Urine UA TRACE g/dL (Negative); Ketones Urine UA NEGATIVE (NEGATIVE); Leukocyte Esterase Urine UA NEGATIVE (NEGATIVE); Nitrite Urine UA POSITIVE (Negative); Occult Blood Urine UA TRACE-INTACT (Negative); Protein Urine UA 2+ (Negative)
[2023-07-09 07:40] LABS: Urine Volume 10mL (spun)
[2023-07-09 07:41] LABS: RBC Urine 0-1/HPF (0-5/HPF)
[2023-07-09 07:42] LABS: Bacteria Urine Moderate (10-30); Culture Indicated Urine Specimen Cultured; Squamous Epithelial Cell Urine 0-1 /HPF (0-5/HPF); WBC Urine 1-5/HPF (0-5/HPF)
== END ==
PROVIDERS: Family Provider Family Medicine; PCP Family Medicine; Visit Provider Nurse Practitioner Family
DX: R30.0 Dysuria (principal)
CPT/HCPCS: 81001; 87077; 87086; 87186

== ENCOUNTER → 2024-04-30 07:26 | Outpatient (CLI) | payer OTHER, SELFPAY ==
[2024-04-30 08:01] LABS: Add Manual Diff / Slide Review NO; Basophils Absolute Auto 0 /uL (0-100); Basophils Percent Auto 0.4 % (0-2); Eosinophils Absolute Auto 0 /uL (0-450); Eosinophils Percent Auto 0.7 % (2-4); Hematocrit 35.5 % (36-46); Hemoglobin 12.3 g/dL (12.0-16.0); Lymphocytes Absolute Auto 600 /uL (1100-4500); Lymphocytes Percent Auto 11.2 % (25-40); Mean Corpuscular HGB Conc 34.6 % (30-36); Mean Corpuscular Hemoglobin 30.2 PG (26-34); Mean Corpuscular Volume 87.2 fL (80-100); Monocytes Absolute Auto 200 /uL (0-900); Monocytes Percent Auto 3.7 % (3-14); Neutrophils Absolute Auto 4600 /uL (1500-7000); Platelet Count 184 X10^3/uL (150-400); Red Blood Cell Count 4.08 X10^6/uL (4.0-5.2); White Blood Cell Count 5.4 X10^3/uL (4.5-11.0)
[2024-04-30 08:24] LABS: Alanine Aminotransferase 26 IU/L (<35); Albumin Globulin Ratio 1.6 (1.0-2.8); Alkaline Phosphatase 76 U/L (38-126); Aspartate Aminotransferase 29 IU/L (14-36); BUN Creatinine Ratio 13.2 (6-22); Bilirubin Total 0.7 mg/dL (0.2-1.3); Blood Urea Nitrogen 12 mg/dL (7-17); Carbon Dioxide 26 mmol/L (22-32); Chloride 104 mmol/L (98-107); Cholesterol 115 mg/dL (140-199); Estimated Glomerular Filt Rate > 60 mL/min (>60); Globulin 2.5 g/dL (1.7-4.1); Glucose 91 mg/dL (70-100); HDL Cholesterol 37 mg/dL (40-60); HEMOLYSIS < 15 (0-50); LDL Cholesterol Calculated 69 mg/dL (<100); Potassium 4.2 mmol/L (3.4-5.1); Sodium 136 mmol/L (137-145); Total Protein 6.5 g/dL (6.3-8.2); Triglycerides 44 mg/dL (35-150)
[2024-04-30 08:41] LABS: Vitamin D 25 Hydroxy (D3) 104 ng/mL (30.0-100.0)
[2024-04-30 08:55] LABS: TSH w/ Reflex to FT4 1.07 uIU/mL (0.47-4.68)
[2024-04-30 09:30] LABS: Folate 18.1 ng/mL (2.76-20.0); Vitamin B12 441 pg/mL (239-931)
== END ==
PROVIDERS: Family Provider Family Medicine; PCP Family Medicine; Referring Provider Family Medicine; Visit Provider Family Medicine
DX: R53.83 Other fatigue (principal); Z78.9 Other specified health status; Z13.21 Encounter for screening for nutritional disorder; Z76.89 Persons encountering health services in other specified circumstances; Z13.220 Encounter for screening for lipoid disorders; R40.0 Somnolence; Z72.820 Sleep deprivation; L81.1 Chloasma
CPT/HCPCS: 36415; 80053; 80061; 82306; 82607; 82672; 82746; 84144; 84443; 84999; 85025